=== PATIENT | male | born 1985 | race American Indian/Alaskan Native ===

== ENCOUNTER 2023-08-09 14:33 | Emergency (ER) | payer MEDICAID ==
[2023-08-09 15:43] LABS: BASOPHILS PERCENT AUTO 1.1 % (0.0-1.0); EOSINOPHILS PERCENT AUTO 3.3 % (1.0-3.0); HEMATOCRIT 43.9 % (40.0-54.0); HEMOGLOBIN 15.4 g/dL (14.0-18.0); LYMPHOCYTES PERCENT AUTO 23.1 % (20.5-50.1); MEAN CORPUSCULAR HEMOGLOBIN 29.2 pg (27.0-34.0); MEAN CORPUSCULAR HGB CONC 35.1 g/dL (33.0-35.0); MEAN CORPUSCULAR VOLUME 83.1 fL (80-100); MONOCYTES PERCENT AUTO 9.4 % (2-8); NEUTROPHILS PERCENT AUTO 63.1 % (42.2-75.2); PLATELET COUNT,PLT 251 10^3/uL (150-450); RED BLOOD CELL COUNT 5.28 10^6/uL (4.6-6.2); WHITE BLOOD CELL COUNT,WBC 5.4 10^3/uL (5.0-10.0)
[2023-08-09 16:04] LABS: ALBUMIN 3.9 g/dL (3.4-5.0); ANION GAP 12.6 mEq/L (7-13); BILIRUBIN TOTAL 0.4 mg/dL (0.2-1.0); BUN/CREATININE RATIO 7.5 (No establ ref range); CALCIUM 8.6 mg/dL (8.5-10.1); CREATININE 0.8 mg/dL (0.70-1.30); EST CRCL DRUG DOSING (CG) 118.2 mL/min; POTASSIUM,K 3.6 mmol/L (3.5-5.1); PROTEIN TOTAL,TP 7.7 g/dL (6.4-8.2)
[2023-08-09] MEDS: GI Cocktail Oral Solution 30 ML PO ONE (16:33)
== END 2023-08-09 17:19 | disposition home or self-care (01) ==
LOC: DL.ED 14:33
DX: K21.9 Gastro-esophageal reflux disease without esophagitis (principal)
CPT/HCPCS: 36415; 71045; 80053; 83690; 84484; 85025; 85379; 93005; 99285; A9270

== ENCOUNTER 2023-08-12 20:30 | Emergency (ER) | payer MEDICAID ==
[2023-08-12] MEDS: Lidocaine 1% 5 ML VIAL INJECT ONE (21:00)
[2023-08-12] MEDS: Diphtheria,Pertussis(Acell),Tetanus Vaccine 0.5 ML Syringe IM ONE (21:52)
== END 2023-08-12 22:07 | disposition home or self-care (01) ==
LOC: DL.ED 20:30
DX: S61.011A Laceration without foreign body of right thumb without damage to nail, initial encounter (principal); Z23 Encounter for immunization; W26.8XXA Contact with other sharp object(s), not elsewhere classified, initial encounter
CPT/HCPCS: 12002; 90471; 90715; 99282; 99282-25; J3490

== ENCOUNTER 2024-02-12 14:42 | Observation (INO) | payer MEDICAID ==
[2024-02-12 15:12] LABS: EOSINOPHILS PERCENT AUTO 1.9 % (1.0-3.0); HEMATOCRIT 42.1 % (40.0-54.0); HEMOGLOBIN 14.8 g/dL (14.0-18.0); LYMPHOCYTES PERCENT AUTO 18.5 % (20.5-50.1); MEAN CORPUSCULAR HEMOGLOBIN 29.4 pg (27.0-34.0); MEAN CORPUSCULAR HGB CONC 35.2 g/dL (33.0-35.0); MEAN CORPUSCULAR VOLUME 83.7 fL (80-100); MONOCYTES PERCENT AUTO 11.9 % (2-8); NEUTROPHILS PERCENT AUTO 66.7 % (42.2-75.2); PLATELET COUNT,PLT 243 10^3/uL (150-450); RED BLOOD CELL COUNT 5.03 10^6/uL (4.6-6.2); WHITE BLOOD CELL COUNT,WBC 5.2 10^3/uL (5.0-10.0)
[2024-02-12] MEDS: Lactated Ringers 1,000 ML IV SCH (15:15)
[2024-02-12 15:28] LABS: PROTHROMBIN TIME 20.3 SEC (9.0-12.0)
[2024-02-12 15:32] LABS: A/G RATIO 1.1; ALANINE AMINOTRANSFERASE,ALT 23 U/L (16-63); ALKALINE PHOSPHATASE 98 U/L (46-116); ANION GAP 14.6 mEq/L (7-13); ASPARTATE AMNIOTRANSFERASE,AST 14 U/L (15-37); BILIRUBIN TOTAL 0.4 mg/dL (0.2-1.0); BLOOD UREA NITROGEN,BUN 11 mg/dL (7-18); BUN/CREATININE RATIO 12.4 (No establ ref range); CALCIUM 8.8 mg/dL (8.5-10.1); CARBON DIOXIDE,CO2 26 mmol/L (21-32); CHLORIDE,CL 94 mmol/L (98-107); CREATININE 0.89 mg/dL (0.70-1.30); GLUCOSE RANDOM 109 mg/dL (70-99); MAGNESIUM 1.9 mg/dL (1.8-2.4); POTASSIUM,K 3.6 mmol/L (3.5-5.1); PROTEIN TOTAL,TP 7.6 g/dL (6.4-8.2); SODIUM,NA 131 mmol/L (136-145)
[2024-02-12 15:43] LABS: ESTIMATED GFR 113 mL/min (>=60)
[2024-02-12] MEDS: Iopamidol 612 MG/ML 100 ML Bottle IVPUSH ONE (16:58)
[2024-02-12] MEDS: OXcarbazepine 300 MG Tab PO ONE ×2 (17:28→21:31)
[2024-02-12 17:49] LABS: APPEARANCE,URINE CLEAR (CLEAR); BILIRUBIN,URINE NEGATIVE (NEGATIVE); COLOR,URINE YELLOW (YELLOW); GLUCOSE,URINE NEGATIVE (NEGATIVE); KETONES,URINE NEGATIVE (NEGATIVE); LEUKOCYTE ESTERASE,URINE NEGATIVE (NEGATIVE); NITRITE,URINE NEGATIVE (NEGATIVE); OCCULT BLOOD,URINE TRACE-INTACT (NEGATIVE); PROTEIN,URINE NEGATIVE (NEGATIVE)
[2024-02-12 17:51] LABS: METHAMPHETAMINES,URINE NEGATIVE (NEGATIVE)
[2024-02-12 17:52] LABS: AMPHETAMINES,URINE NEGATIVE (NEGATIVE); BARBITURATES,URINE NEGATIVE (NEGATIVE); BENZODIAZEPINE,URINE NEGATIVE (NEGATIVE); MDMA (ECSTASY), URINE NEGATIVE (NEGATIVE); METHADONE,URINE NEGATIVE (NEGATIVE); OPIATES,URINE NEGATIVE (NEGATIVE); OXYCODONE,URINE NEGATIVE (NEGATIVE); PHENCYCLIDINE,URINE NEGATIVE (NEGATIVE); TCA,URINE POSITIVE (NEGATIVE)
[2024-02-12] MEDS: Sodium Chloride 0.9% 1,000 ML IV ONE (18:17)
[2024-02-12 18:30] LABS: RBC,URINE 0-5 /HPF (0-5); WBC,URINE 0-5 /HPF (0-5/HPF)
[2024-02-12 18:32] LABS: AMORPHOUS SEDIMENT,URINE FEW /HPF (NOT SEEN); BACTERIA,URINE FEW /HPF (0-FEW/HPF); EPITHELIAL CELLS,URINE RARE /HPF (NOT SEEN); MUCUS,URINE FEW /LPF (NOT SEEN)
[2024-02-12] MEDS ORDERED: Sennosides/Docusate Sodium 50-8.6 MG Tab PO PRN (19:24)
[2024-02-12] MEDS ORDERED: Albuterol/Ipratropium 3.0-0.5 MG/3 ML Neb Soln NEB PRN (19:24)
[2024-02-12] MEDS ORDERED: Acetaminophen 325 MG Tab PO PRN (19:24)
[2024-02-12] MEDS ORDERED: Polyethylene Glycol 3350 Powder 17 GM Packet PO PRN (19:24)
[2024-02-12] MEDS ORDERED: Melatonin 3 MG Tab PO PRN (19:24)
[2024-02-12] MEDS ORDERED: HYDROmorphone 0.5 MG/0.5 ML Syringe IVPUSH PRN (19:24)
[2024-02-12] MEDS ORDERED: Magnesium Hydroxide 400 MG/5 ML Susp 30 ML Cup PO PRN (19:24)
[2024-02-12] MEDS ORDERED: Naloxone 2 MG/2 ML Syringe IVPUSH PRN (19:24)
[2024-02-12] MEDS ORDERED: Acetaminophen/HYDROcodone 325-5 MG Tab PO PRN (19:24)
[2024-02-12] MEDS ORDERED: Ondansetron 4 MG/2 ML SDV IVPUSH PRN (19:24)
[2024-02-12] MEDS ORDERED: Flumazenil 0.1 MG/ML 5 ML MDV IVPUSH PRN (19:27)
[2024-02-12] MEDS ORDERED: LORazepam 2 MG/ML SDV IVPUSH PRN (19:27)
[2024-02-12] MEDS: atorvaSTATin 10 MG Tab PO SCH (20:53)
[2024-02-12] MEDS: Warfarin 5 MG Tab PO ONE (20:58)
[2024-02-12] MEDS ORDERED: OXcarbazepine 300 MG Tab PO SCH (21:00)
[2024-02-12] MEDS ORDERED: Bisacodyl 10 MG Supp RECTAL PRN (22:10)
[2024-02-13 07:00] LABS: HEMATOCRIT 40.9 % (40.0-54.0); HEMOGLOBIN 14.1 g/dL (14.0-18.0); LYMPHOCYTES PERCENT AUTO 28.8 % (20.5-50.1); MEAN CORPUSCULAR HEMOGLOBIN 29.4 pg (27.0-34.0); MEAN CORPUSCULAR HGB CONC 34.5 g/dL (33.0-35.0); MEAN CORPUSCULAR VOLUME 85.2 fL (80-100); MONOCYTES PERCENT AUTO 9.6 % (2-8); NEUTROPHILS PERCENT AUTO 57.6 % (42.2-75.2); PLATELET COUNT,PLT 218 10^3/uL (150-450)
[2024-02-13 07:10] LABS: INR 1.9 (0.9-1.2); PROTHROMBIN TIME 18.9 SEC (9.0-12.0)
[2024-02-13 07:16] LABS: A/G RATIO 1.1; ALBUMIN 3.4 g/dL (3.4-5.0); ANION GAP 11.7 mEq/L (7-13); BILIRUBIN TOTAL 0.5 mg/dL (0.2-1.0); BUN/CREATININE RATIO 8.1 (No establ ref range); CALCIUM 8.3 mg/dL (8.5-10.1); CREATININE 0.74 mg/dL (0.70-1.30); EST CRCL DRUG DOSING (CG) 128.02 mL/min; POTASSIUM,K 3.7 mmol/L (3.5-5.1); PROTEIN TOTAL,TP 6.6 g/dL (6.4-8.2)
[2024-02-13] MEDS: OXcarbazepine 300 MG Tab PO SCH (09:04)
[2024-02-13] MEDS: Famotidine 20 MG Tab PO SCH (09:04)
[2024-02-13] MEDS: Losartan 50 MG Tab PO SCH (09:05)
[2024-02-13] MEDS: amLODIPine 5 MG Tab PO SCH (09:05)
[2024-02-13] MEDS: Lactulose Soln 10 GM/15 ML 30 ML UD Cup PO ONE (09:06)
[2024-02-13] MEDS: FLU (Flulaval Triv) 24-25(6MOS UP)/PF 45 MCG/0.5 ML Syringe IM ONE (12:46)
[2024-02-13] MEDS ORDERED: Warfarin 5 MG Tab PO SCH (14:00)
== END 2024-02-13 12:00 | disposition home or self-care (01) ==
LOC: DL.ED 14:42 → DL.MS 18:08 → DL.ED 18:42
PROVIDERS: ADMIT Internal Medicine; ATTEND Internal Medicine
DX: R33.9 Retention of urine, unspecified (principal); K59.00 Constipation, unspecified; E78.00 Pure hypercholesterolemia, unspecified; Z79.899 Other long term (current) drug therapy
CPT/HCPCS: 36415; 74178; 80053; 80305; 81001; 83735; 85025; 85610; 93005; A9270; J7030; J7120; Q9967; 99222; 99238; G0378